=== PATIENT | female | born 1995 | race Hispanic/Latino ===

== ENCOUNTER 2018-02-23 14:26 | Emergency (ER) | payer MEDICAID, OTHER | END 2018-02-23 14:57 | disposition home or self-care (01) | LOC: EDH 14:26 | DX: L03.012 Cellulitis of left finger (principal); Z98.890 Other specified postprocedural states ==

== ENCOUNTER 2018-03-06 23:48 | Emergency (ER) | payer OTHER ==
[2018-03-07 00:14] LABS: APPEARANCE,URINE Cloudy (CLEAR); BILIRUBIN,URINE Negative (NEGATIVE); COLOR,URINE Dark Yellow (YELLOW); GLUCOSE, URINE (UA) Negative (NEGATIVE); KETONES,URINE Trace mg/dL (NEGATIVE); LEUKOCYTE ESTERASE ,URINE Small (NEGATIVE); NITRATE,URINE Negative (NEGATIVE); OCCULT BLOOD,URINE Negative (NEGATIVE); PH,URINE 5.5 (5.0-8.0); PROTEIN,URINE POS 1+ (NEGATIVE)
[2018-03-07 00:15] LABS: HCG,QUAL RESULT NEGATIVE (NEGATIVE)
[2018-03-07 00:22] LABS: BACTERIA,URINE Few /HPF (None Seen); RBC,URINE None Seen /HPF (0-1); SQUAMOUS EPITHELIAL CELL,UR Moderate /HPF (0-2)
[2018-03-07 00:23] LABS: MUCUS,URINE Many LPF (None Seen)
[2018-03-07 00:28] LABS: BASOPHILS % (AUTO) 0.5 % (0.0-5.0); EOSINOPHILS % (AUTO) 1.8 % (0.0-8.0); HEMATOCRIT 41.9 % (36-48); LYMPHOCYTES % (AUTO) 20.2 % (21.0-51.0); MEAN CORPUSCULAR HEMOGLOBIN 28.6 pg (27.0-33.0); MEAN CORPUSCULAR HGB CONC 34.1 g/dL (32.0-36.0); MEAN CORPUSCULAR VOLUME 83.8 fL (80-100); MONOCYTES % (AUTO) 5.2 % (3.0-13.0); NEUTROPHILS % (AUTO) 72.3 % (40.0-77.0); PLATELET COUNT (AUTO) 251 K/uL (130-400); RED CELL DISTRIBUTION WIDTH 13.8 % (11.0-15.5); WHITE BLOOD COUNT (AUTO) 8.8 K/uL (4.8-10.8)
[2018-03-07 00:31] LABS: CREATININE 0.7 mg/dL (0.5-1.5); POTASSIUM 4.6 mmol/L (3.5-5.1)
[2018-03-07 00:34] LABS: ALBUMIN 3.4 g/dL (3.5-5.0); BILIRUBIN,TOTAL 0.6 mg/dL (0.2-1.0); TOTAL PROTEIN, SERUM 8.4 g/dL (6.0-8.3)
[2018-03-07 00:44] LABS: INR 1.02 (0.85-1.15); PARTIAL THROMBOPLASTIN TIME 27.4 SEC (26.3-35.5); PROTHROMBIN TIME 10.7 SEC (9.6-11.6)
[2018-03-07 00:45] LABS: AMPHET/METH SCREEN,URINE NEGATIVE (NEGATIVE); BARBITURATE SCREEN, URINE NEGATIVE (NEGATIVE); BENZODIAZEPINES SCREEN,URINE NEGATIVE (NEGATIVE); CANNABINOID SCREEN,URINE NEGATIVE (NEGATIVE); COCAINE SCREEN,URINE NEGATIVE (NEGATIVE); OPIATE SCREEN,URINE NEGATIVE (NEGATIVE); PHENCYCLIDINE SCREEN,URINE NEGATIVE (NEGATIVE)
[2018-03-07] MEDS ORDERED: ONDANSETRON HCL 4 MG/2 ML VIAL ONE (00:51)
[2018-03-07] MEDS ORDERED: SODIUM CHLORIDE 0.9% 1000ML 1,000 ML IV ONE (00:51)
== END 2018-03-07 02:01 | disposition home or self-care (01) ==
LOC: EDH 23:48
DX: R11.2 Nausea with vomiting, unspecified (principal); R10.10 Upper abdominal pain, unspecified; R10.13 Epigastric pain
CPT/HCPCS: 36415; 80053; 80305; 81001; 81025; 82150; 82550; 83690; 85025; 85610; 85730; 93005; 96374; 99284; J2405; J7030

== ENCOUNTER 2023-04-22 13:22 | Emergency (ER) | payer MEDICAID ==
[~2023-04-22] VITALS: Ht 167.6 cm; Wt 104.3 kg
[2023-04-22 13:32] VITALS: BP 114/62; PULSE 71; RESP 18
[2023-04-22 14:20] LABS: BASOPHILS # (AUTO) 0.02 K/uL (0.00-0.20); BASOPHILS % (AUTO) 0.2 % (0.0-5.0); EOSINOPHILS # (AUTO) 0.39 K/uL (0.00-0.70); EOSINOPHILS % (AUTO) 4.4 % (0.0-8.0); HEMATOCRIT 36.4 % (36-48); IMMATURE GRANULOCYTE ABSOLUTE 0.02 K/uL (0-1); LYMPHOCYTES # (AUTO) 2.9 K/uL (1.0-4.8); LYMPHOCYTES % (AUTO) 32.4 % (21.0-51.0); MEAN CORPUSCULAR HEMOGLOBIN 25.3 pg (27.0-33.0); MEAN CORPUSCULAR HGB CONC 32.4 g/dL (32.0-36.0); MEAN CORPUSCULAR VOLUME 78.1 fL (79-99); MONOCYTES # (AUTO) 0.6 K/uL (0.1-1.0); MONOCYTES % (AUTO) 6.6 % (3.0-13.0); NEUTROPHILS % (AUTO) 56.2 % (40.0-77.0); PLATELET COUNT (AUTO) 272 K/uL (130-400); RED BLOOD CELL COUNT(AUTO) 4.66 MIL/uL (4.00-5.50); RED CELL DISTRIBUTION WIDTH 13.9 % (11.0-15.5); WHITE BLOOD COUNT (AUTO) 8.9 K/uL (4.8-10.8)
[2023-04-22 14:33] LABS: CREATININE 0.7 mg/dL (0.5-1.5); POTASSIUM 3.8 mmol/L (3.5-5.1)
[2023-04-22 14:37] LABS: ALBUMIN 3.4 g/dL (3.5-5.0); BILIRUBIN,TOTAL 0.2 mg/dL (0.2-1.0); TOTAL PROTEIN, SERUM 7.8 g/dL (6.0-8.3)
== END 2023-04-22 17:46 | disposition left against medical advice (07) ==
LOC: EDH 13:22
DX: R42 Dizziness and giddiness (principal); Z53.1 Procedure and treatment not carried out because of patient's decision for reasons of belief and group pressure
CPT/HCPCS: 36415; 80053; 84484; 85025; 93005; 99281

== ENCOUNTER 2023-04-26 08:55 | Emergency (ER) | payer MEDICAID ==
[~2023-04-26] VITALS: Ht 167.6 cm; Wt 104.3 kg
[2023-04-26] MEDS ORDERED: ONDANSETRON 4MG INJ IVP ONE (09:30)
[2023-04-26] MEDS ORDERED: FAMOTIDINE 20MG VIAL IV ONE (09:30)
[2023-04-26] MEDS ORDERED: 0.9%NACL 1000ML 1,000 ML IV ONE (09:30)
[2023-04-26] MEDS ORDERED: KETOROLAC 30MG VIAL (30MG/ML) IVP ONE (09:30)
[2023-04-26 10:23] LABS: BASOPHILS # (AUTO) 0.02 K/uL (0.00-0.20); BASOPHILS % (AUTO) 0.2 % (0.0-5.0); EOSINOPHILS # (AUTO) 0.36 K/uL (0.00-0.70); EOSINOPHILS % (AUTO) 4.5 % (0.0-8.0); HEMATOCRIT 38.1 % (36-48); IMMATURE GRANULOCYTE ABSOLUTE 0.02 K/uL (0-1); LYMPHOCYTES # (AUTO) 2.5 K/uL (1.0-4.8); LYMPHOCYTES % (AUTO) 30.7 % (21.0-51.0); MEAN CORPUSCULAR HEMOGLOBIN 25.7 pg (27.0-33.0); MEAN CORPUSCULAR VOLUME 80.2 fL (79-99); MONOCYTES # (AUTO) 0.4 K/uL (0.1-1.0); NEUTROPHILS # (AUTO) 4.8 K/uL (1.8-7.7); NEUTROPHILS % (AUTO) 59.4 % (40.0-77.0); PLATELET COUNT (AUTO) 260 K/uL (130-400); RED BLOOD CELL COUNT(AUTO) 4.75 MIL/uL (4.00-5.50); RED CELL DISTRIBUTION WIDTH 14.1 % (11.0-15.5); WHITE BLOOD COUNT (AUTO) 8.1 K/uL (4.8-10.8)
[2023-04-26 10:34] LABS: ALBUMIN 3.3 g/dL (3.5-5.0); BILIRUBIN,TOTAL 0.4 mg/dL (0.2-1.0); CREATININE 0.8 mg/dL (0.5-1.5); POTASSIUM 4.6 mmol/L (3.5-5.1); TOTAL PROTEIN, SERUM 7.9 g/dL (6.0-8.3)
[2023-04-26] MEDS ORDERED: DICY20TA2 PO (12:55)
[2023-04-26] MEDS ORDERED: ONDA4TAB10 PO (12:55)
[2023-04-26 13:07] VITALS: BP 128/72; PULSE 68; RESP 18; O2SAT 100
== END 2023-04-26 13:09 | disposition home or self-care (01) ==
LOC: EDH 08:55
DX: K80.20 Calculus of gallbladder without cholecystitis without obstruction (principal); K76.0 Fatty (change of) liver, not elsewhere classified; K80.50 Calculus of bile duct without cholangitis or cholecystitis without obstruction; Z79.899 Other long term (current) drug therapy
CPT/HCPCS: 99285; 96374; 96361; 76705; 96375; 80053; 83690; 85025; 36415; J7030; J2405; J1885; S0028; J3490

== ENCOUNTER 2024-07-01 23:38 | Emergency (ER) | payer MEDICAID ==
[~2024-07-01] VITALS: Ht 167.6 cm; Wt 97.5 kg
[~2024-07-01 23:38] MED LIST: DICY20TA2 PO; IOHEXOL-350 75 ML VIAL IV ONE; ONDA-243 PO
[2024-07-01 23:39] VITALS: BP 138/79; PULSE 91; RESP 18; TEMP 98.6
--- NOTE | 2024-07-01 23:50 | ERN ---
ED Note History of Present Illness Stated Complaint: NAUSEA VOMITING Chief Complaint: Nausea,Vomiting,Diarrhea Time Seen by MD: 23:43 Dictation: PATIENT IS A 29-YEAR-OLD FEMALE COMING IN TODAY WITH DIFFUSE ABDOMINAL PAIN INTERMITTENT WITH NAUSEA VOMITING ONSET 12 DAYS PRIOR TO ARRIVAL. SHE STATES SHE IS STATUS POST A CHOLECYSTECTOMY AND A GASTRIC BYPASS DONE AT [facility] IN [facility] BY DR. Rock. She has had no fever no chills no chest pain no back pain. She states her appointment with him is not for another month. Allergies: Coded Allergies: No Known Drug Allergies (Unverified Allergy, Unknown, 04/22/23) Home Meds Active Scripts Dicyclomine HCl (Bentyl) 20 Mg Tab, 20 MG PO TIDP PRN for ABDOMINAL PAIN, #12 TAB 0 Refills Prov:RYAN NICOLAS [facility] 04/26/23 Ondansetron (Ondansetron Odt) 4 Mg Tab.rapdis, 4 MG PO Q6HPRN PRN for nausea, #12 TAB 0 Refills Prov:RYAN NICOLAS [facility] 04/26/23 Past Medical History Past Medical History: Gallstones Surgical History: Bariatric Surgery History: Not Applicable RN Note Reviewed/Agreed w/PFSH: Yes Review of System Dictation CONSTITUTIONAL: Negative except for HPI HEAD/FACE: Negative except for HPI EENT: Negative except for HPI RESPIRATORY: Negative except for HPI GASTROINTESTINAL/ABDOMINAL: Negative except for HPI epigastric and diffuse pain with nausea vomiting GENITOURINARY: Negative except for HPI MUSCULOSKELETAL: Negative except for HPI INTEGUMENTARY: Negative except for HPI NEUROLOGICAL/PSYCH: Negative except for HPI HEMATOLOGIC/LYMPHATIC: Negative except for HPI All Systems Negative, Except as noted above. 13 point review of systems assessed and all negative except for above. Initial Vital Sign VS Vital Signs Date Time Temp Pulse Resp B/P (MAP) Pulse Ox O2 Delivery O2 Flow Rate FiO2 07/01/24 23:39 98.6 91 18 138/79 97 Room Air Physical Exam Dictation Vital Signs reviewed General Appearance: Alert, oriented x 3, mild acute distress, well developed, nourished. Obese Head and Face: non-traumatic. Eyes: PERRL, pink conjunctivas, eyelid no trauma, anterior chamber with arcus senilis. Ears: Pinnas intact and no signs of trauma or erythema ear canals clear and no discharge TM no erythema Nose: No discharge, no bleeding. Oropharynx: Mouth normal, tongue pink, pharynx clear,no erythema, tonsils no exudates, no abscesses noted, mucous membrane moist Neck: Supple, non-tender, no thyromegaly, no masses, no JVD, no bruits Breast:Deferred Chest:No tenderness, no crepitus, no paradoxical movement, no retractions Lungs:Clear, well-ventilated, symmetric, no rales, no wheezing, no rhonchi, no stridor, good breath sounds bilaterally Heart: Regular rate, regular rhythm, no murmur, no gallops Vascular: no peripheral edema, Abdomen: Soft, , nondistended, no guarding, Mild epigastric tenderness with palpation, diminished bowel sounds throughout Rectal: Deferred Genital: Deferred Neurological: Normal speech, motor function intact, sensory function intact Musculoskeletal: Neck nontender, full range of motion, back nontender, full range of motion, Extremities: nontender, full range of motion Skin: Color pink, dry, no turgor, no rash, no lacerations, no abrasions, no contusions. Lymphatic: Deferred Results (Laboratory/Radiology) Laboratory/Radiology Laboratory Tests Test 07/02/24 00:06 White Blood Count 5.9 K/uL (4.8-10.8) Red Blood Count 4.97 MIL/uL (4.00-5.50) Hemoglobin 13.2 g/dL (12.0-16.0) Hematocrit 40.3 % (36-48) Mean Corpuscular Volume 81.1 fL (79-99) Mean Corpuscular Hemoglobin 26.6 pg (27.0-33.0) L Mean Corpuscular Hemoglobin Concent 32.8 g/dL (32.0-36.0) Red Cell Distribution Width 16.0 % (11.0-15.5) H Platelet Count 233 K/uL (130-400) Mean Platelet Volume 11.5 fL (7.5-10.5) H Immature Granulocyte % (Auto) 0.2 % (0-1) Neutrophils (%) (Auto) 57.2 % (40.0-77.0) Lymphocytes (%) (Auto) 29.5 % (21.0-51.0) Monocytes (%) (Auto) 9.9 % (3.0-13.0) Eosinophils (%) (Auto) 2.9 % (0.0-8.0) Basophils (%) (Auto) 0.3 % (0.0-5.0) Neutrophils # (Auto) 3.4 K/uL (1.8-7.7) Lymphocytes # (Auto) 1.7 K/uL (1.0-4.8) Monocytes # (Auto) 0.6 K/uL (0.1-1.0) Eosinophils # (Auto) 0.17 K/uL (0.00-0.70) Basophils # (Auto) 0.02 K/uL (0.00-0.20) Absolute Immature Granulocyte (auto 0.01 K/uL (0-1) Nucleated Red Blood Cells 0.0 % (0.0-0.19) Sodium Level 142 mmol/L (136-145) Potassium Level 2.9 mmol/L (3.5-5.1) *L Chloride Level 101 mmol/L (101-111) Carbon Dioxide Level 21 mmol/L (21-32) Blood Urea Nitrogen 4 mg/dL (7-18) L Creatinine 0.7 mg/dL (0.5-1.0) Glomerular Filtration Rate Calc 121 mL/min (>90) Random Glucose 72 mg/dL (70-105) Total Calcium 8.9 mg/dL (8.5-10.1) Lipase 57 U/L (16-77) Serum Test, Qualitative NEGATIVE (NEGATIVE) Labs Reviewed?: Yes ED Course ED Course Orders Procedure Category Date Status Time Cbc With Differential LAB 07/01/24 Complete 23:43 Urinalysis Profile LAB 07/01/24 Logged 23:43 Ct Abdomen/Pelvis CT 07/01/24 Resulted W/Contrast 23:43 0.9%Nacl 1000ml (Ns PHA 07/02/24 Complete 1000ml) 00:00 Morphine 2mg Syg PHA 07/02/24 Complete (Morphine 2mg Syg) 00:00 Ondansetron 4mg Inj PHA 07/02/24 Complete (Zofran 4mg Inj) 00:00 Lipase LAB 07/01/24 Complete 23:43 Basic Metabolic Panel LAB 07/01/24 Complete 23:43 Testing, LAB 07/02/24 Complete Serum Hcg 00:06 Potassium Bicarb/Cit PHA 3/31/25 Complete Ac 25meq (K-Lyte Ta 01:00 Iohexol (Omnipaque) PHA 07/02/24 Complete 01:16 Current Medications Medications (Trade) Dose Ordered Sig/Maribel Route PRN Reason Start Time Stop Time Status Last Admin Dose Admin Iohexol (Omnipaque) 75 ml STK-MED ONCE IV 07/02/24 01:16 07/02/24 01:16 DC Morphine Sulfate (morPHINE 2MG SYG) 2 mg ONCE ONCE IVP 07/02/24 00:00 07/02/24 00:01 DC 07/02/24 00:24 Ondansetron HCl (zoFRAN 4MG INJ) 4 mg ONCE ONCE IVP 07/02/24 00:00 07/02/24 00:01 DC 07/02/24 00:24 Potassium Bicarbonate (K-Lyte Tablet Eff 25 Meq Tablet.eff) 25 meq ONCE ONCE PO 07/02/24 01:00 07/02/24 01:01 DC 07/02/24 01:06 Sodium Chloride 1,000 ml @ 0 mls/hr ONCE ONCE IV 07/02/24 00:00 07/02/24 00:01 DC 07/02/24 00:25 Vital Signs Date Time Temp Pulse Resp B/P (MAP) Pulse Ox O2 Delivery O2 Flow Rate FiO2 07/01/24 23:39 98.6 91 18 138/79 97 Room Air 0050/potassium 2.9 patient given 25 mEq of potassium replacement we will be discharged home with replacements until she sees her doctor. SEX: F AGE: 29 LOCATION: [facility] ORDER 43 STATUS: REG ER REPORT#: [id number] SERVICE REASON: EPIGASTRIC PAIN WITH NAUSEA AND VOMITING. HISTORY OF GASTRIC BYPASS ORDERING PHYSICIAN: YFN NIELSEN NP PROCEDURE: ABD PEL W - CT ABDOMEN/PELVIS W/CONTRAST CT ABDOMEN/PELVIS W/CONTRAST HISTORY: Epigastric pain COMPARISON: None TECHNIQUE: Multiple sequential axial images of the abdomen and pelvis were obtained from the dome of the diaphragm through symphysis pubis. Patient was not given contrast through intravenous route. Oral contrast was given. FINDINGS: No pleural effusion is seen bilaterally. There is no evidence of parenchymal disease or pulmonary nodule of the visualized lower lungs. Degenerative changes of the thoracolumbar spine are present. The heart is not enlarged. Then liver is enlarged with fatty changes measuring 18 cm. Post gastric bypass surgical changes are seen. No bowel obstruction is seen. The liver, spleen, adrenal glands and pancreas are unremarkable. There is no evidence of hydronephrosis bilaterally. No evidence of renal stone is seen. Fecal material is seen in the colon. There are normal size retroperitoneal and mesenteric lymph nodes. No ascites is seen. Appendix is not well seen limiting evaluation. Clinical correlation is is recommended. Pelvic sidewalls are symmetric bilaterally. Bladder is moderately distended. IMPRESSION: 1. No bowel obstruction is seen. No acute findings. /PATIENT FEELS MARKEDLY IMPROVED AFTER TREATMENT AND FLUIDS. NO ACUTE FINDINGS CT IS NEGATIVE. PATIENT WILL BE DISCHARGED HOME WITH NAUSEA VOMITING MILD DEHYDRATION. TOLD TO SEE HER SURGEON FOR FOLLOW UP IN THE NEXT 2-3 DAYS AND WE WILL REPLACE POTASSIUM Medical Decision Making MDM MDM: DIFFERENTIAL DIAGNOSIS: SMALL BOWEL OBSTRUCTION/GASTRIC OUTLET SYNDROME/ELECTROLYTE IMBALANCE/DEHYDRATION/ RATIONALE: TESTS CONSIDERED AND ORDERED SECONDARY TO SHARED DECISION MAKING INCLUDE: RADIOLOGY/LABS PREVIOUS OUTSIDE RECORDS REVIEWED: OLD ER VISITS. RISK OF COMPLICATION AND/OR MORBIDITY OR MORTALITY OF PATIENT MANAGEMENT: NONE MEDICATIONS-PER MEDICATION RECONCILIATION NEED FOR HOSPITALIZATION: PATIENT DOES NOT MEET CRITERIA FOR HOSPITALIZATION. NO NEED FOR EMERGENCY MAJOR/MINOR SURGERY: NO THERE ARE NO SOCIAL CONCERNS WITH THIS PATIENT. PRESCRIPTION DRUG MANAGEMENT OMEPRAZOLE/ZOFRAN/K-DUR PRESCRIPTIONS WILL INCLUDE SYMPTOMATIC CARE PATIENT'S PRIOR EXTERNAL MEDICAL RECORDS FROM OTHER ER VISITS WERE REVIEWED BY ME INDICATED. PRIOR TESTING AND RESULTS FROM PREVIOUS VISITS WERE REVIEWED. PRIOR TESTS WERE TAKEN INTO ACCOUNT WITH MEDICAL DECISION MAKING AND RESOURCE UTILIZATION, INDEPENDENT HISTORIAN/HISTORIANS WERE USED TO OBTAIN COMPLETE MEDICAL HISTORY. I INDEPENDENTLY INTERPRETED THE TEST THAT WERE PERFORMED, RESULTS WERE REVIEWED BY ME AND CONSIDERED FINDINGS ON RADIOLOGY IF ORDERED. MEDICAL MANAGEMENT AND EXAMINATION INTERPRETATION DISCUSSIONS WERE HAD BY ME WITH OTHER QUALIFIED HEALTHCARE PROFESSIONALS INDICATED FOR THE PATIENT'S CARE. DX & DISP Disposition: Discharge Departure Impression: Primary Impression: Nausea & vomiting Additional Impressions: Mild dehydration, Hypokalemia, Status post gastric bypass for obesity Condition: Stable Scripts Potassium Chloride (K-Dur/Klor-Con) 20 Meq Ertab 1 TAB PO DAILY for 5 Days, #5 TAB 0 Refills Prov: YFN NIELSEN INTERMEDIATE ACCOUNTANT 07/02/24 Ondansetron (Ondansetron Odt) 4 Mg Tab.rapdis 4 MG PO Q6HPRN PRN for nausea, #16 TAB 0 Refills Prov: YFN NIELSEN NP 07/02/24 Omeprazole (Omeprazole) 40 Mg Capsule.dr 1 CAP PO DAILY for 30 Days, #30 CAP 0 Refills Prov: YFN NIELSEN NP 07/02/24 Additional Instructions: FOLLOW-UP WITH PRIMARY CARE PROVIDER IN 1 TO 2 DAYS. TAKE MEDICATIONS DIRECTED HERE IN THE EMERGENCY ROOM. OKAY TO CONTINUE HOME MEDICATIONS UNLESS OTHERWISE DISCUSSED DURING YOUR VISIT IN THE EMERGENCY ROOM TODAY. RETURN TO YOUR NEAREST EMERGENCY ROOM IF SYMPTOMS WORSEN OR IF THERE IS NO IMPROVEMENT. CALL 911 IF YOU NEED IMMEDIATE ASSISTANCE. TAKE TYLENOL OR MOTRIN [id number] NEEDED AND IF NO CONTRAINDICATIONS ARE PRESENT. INCREASE ORAL HYDRATION. A WOUND CULTURE OR URINE CULTURE WAS ORDERED HERE IN THE EMERGENCY ROOM DEPARTMENT PLEASE FOLLOW-UP WITH PRIMARY CARE PROVIDER AND ADVISE THEM TO GET REPEAT PORTS FROM OUR FACILITY. IF YOU HAD ANY MINDA WRAP/SPLINTS THAT WERE APPLIED HERE, PLEASE DO NOT REMOVE THEM UNTIL YOU SEE YOUR PRIMARY CARE OR SPECIALTY. FOLLOW UP WITH THE YOUR SURGEON IN THE NEXT 1-[address] [facility]. TAKE K-DUR DIRECTED UNTIL GONE. FOLLOW ALL YOUR DIET GUIDELINES FROM YOUR SURGEON. Referrals: KAIN ERNANDEZ DO (PCP) Time of Disposition: 02:02 I have reviewed the case, and I agree with, Diagnosis and Plan YFN NIELSEN NP Jul 01, 2024 23:50
[2024-07-02] MEDS: morPHINE 2 MG SYG IVP ONE (00:24)
[2024-07-02] MEDS: ondanSETRON 4MG INJ IVP ONE (00:24)
[2024-07-02] MEDS: 0.9%NACL 1000ML 1,000 ML IV ONE (00:25)
[2024-07-02 00:29] LABS: BASOPHILS # (AUTO) 0.02 K/uL (0.00-0.20); BASOPHILS % (AUTO) 0.3 % (0.0-5.0); EOSINOPHILS # (AUTO) 0.17 K/uL (0.00-0.70); EOSINOPHILS % (AUTO) 2.9 % (0.0-8.0); HEMATOCRIT 40.3 % (36-48); IMMATURE GRANULOCYTE ABSOLUTE 0.01 K/uL (0-1); LYMPHOCYTES # (AUTO) 1.7 K/uL (1.0-4.8); LYMPHOCYTES % (AUTO) 29.5 % (21.0-51.0); MEAN CORPUSCULAR HEMOGLOBIN 26.6 pg (27.0-33.0); MEAN CORPUSCULAR HGB CONC 32.8 g/dL (32.0-36.0); MEAN CORPUSCULAR VOLUME 81.1 fL (79-99); MONOCYTES # (AUTO) 0.6 K/uL (0.1-1.0); MONOCYTES % (AUTO) 9.9 % (3.0-13.0); NEUTROPHILS # (AUTO) 3.4 K/uL (1.8-7.7); NEUTROPHILS % (AUTO) 57.2 % (40.0-77.0); PLATELET COUNT (AUTO) 233 K/uL (130-400); RED BLOOD CELL COUNT(AUTO) 4.97 MIL/uL (4.00-5.50); WHITE BLOOD COUNT (AUTO) 5.9 K/uL (4.8-10.8)
[2024-07-02 00:31] LABS: CREATININE 0.7 mg/dL (0.5-1.0)
[2024-07-02 00:46] LABS: POTASSIUM 2.9 mmol/L (3.5-5.1)
[2024-07-02] MEDS: PoTASSium BIcarbonate/CIT AC 25 MEQ TABLET.EFF PO ONE (01:06)
[2024-07-02] MEDS ORDERED: IOHEXOL-350 75 ML VIAL IV ONE (01:16)
--- NOTE | 2024-07-02 01:58 | HMCIMG ---
CT ABDOMEN/PELVIS W/CONTRAST HISTORY: Epigastric pain COMPARISON: None TECHNIQUE: Multiple sequential axial images of the abdomen and pelvis were obtained from the dome of the diaphragm through symphysis pubis. Patient was not given contrast through intravenous route. Oral contrast was given. FINDINGS: No pleural effusion is seen bilaterally. There is no evidence of parenchymal disease or pulmonary nodule of the visualized lower lungs. Degenerative changes of the thoracolumbar spine are present. The heart is not enlarged. Then liver is enlarged with fatty changes measuring 18 cm. Post gastric bypass surgical changes are seen. No bowel obstruction is seen. The liver, spleen, adrenal glands and pancreas are unremarkable. There is no evidence of hydronephrosis bilaterally. No evidence of renal stone is seen. Fecal material is seen in the colon. There are normal size retroperitoneal and mesenteric lymph nodes. No ascites is seen. Appendix is not well seen limiting evaluation. Clinical correlation is is recommended. Pelvic sidewalls are symmetric bilaterally. Bladder is moderately distended. IMPRESSION: 1. No bowel obstruction is seen. No acute findings. CT was performed with one or more following dose reduction techniques: automated exposure control, adjustment of the mA and kv according to patient's size, or use of a iterative reconstruction technique.
[2024-07-02] MEDS ORDERED: POTA-192 PO (02:04)
[2024-07-02] MEDS ORDERED: OMEP40CA21 PO (02:04)
[2024-07-02] MEDS ORDERED: ONDA-243 PO (02:04)
== END 2024-07-02 03:13 | disposition home or self-care (01) ==
LOC: EDH 23:38
DX: E87.6 Hypokalemia (principal); R11.2 Nausea with vomiting, unspecified; E86.0 Dehydration; E66.9 Obesity, unspecified; Z98.84 Bariatric surgery status
CPT/HCPCS: 99285; 74177; 80048; 84703; 83690; 85025; 36415; 96374; 96375; J2270; J7030; J2405; Q9967